=== PATIENT | male | born 1965 | race Caucasian/White ===

== ENCOUNTER 2024-01-21 14:28 | Emergency (ER) | payer OTHER ==
[~2024-01-21] VITALS: Ht 180.3 cm; Wt 88.0 kg
[2024-01-21] MEDS ORDERED: Tetracaine HCl/Pf 0.5% Opth Soln 4 ml LEFTEYE ONE (17:05)
[2024-01-21 19:36] VITALS: BP 126/76
[2024-01-21] MEDS ORDERED: CLOMIPRAMINE HC25 M1 PO (19:44)
== END 2024-01-21 19:59 | disposition home or self-care (01) ==
LOC: ER 14:28
DX: S00.531A Contusion of lip, initial encounter (principal); W01.0XXA Fall on same level from slipping, tripping and stumbling without subsequent striking against object, initial encounter
CPT/HCPCS: 99283